=== PATIENT | female | born 1950 | race Caucasian/White ===

== ENCOUNTER 2017-07-25 09:21 | Emergency (ER) | payer MEDICARE, OTHER ==
[~2017-07-25] VITALS: Ht 165.1 cm; Wt 65.8 kg
[~2017-07-25 09:21] MED LIST: BENAZEPRIL; CYMBALTA; SOMA; TRAZODONE
[2017-07-25] MEDS ORDERED: CEPH-569 PO (09:47)
--- NOTE | 2017-07-25 09:56 | NUR ---
Dr Otto at the bedside for MSE.Female news videotape editor accompanied female patient for (Dr otto).
[2017-07-25] MEDS ORDERED: BENA1TAB18 PO (09:57)
[2017-07-25] MEDS ORDERED: CARI350T PO (09:57)
[2017-07-25] MEDS ORDERED: TRAZ-147 PO (09:57)
[2017-07-25] MEDS ORDERED: ONDANSETRON IV *ER 4 MG/2 ML VIAL IV ONE (10:04)
[2017-07-25] MEDS ORDERED: PIPERACILLIN/TAZOBACTAM/D5W 3.375 G in PREMIXED 1 EACH IV ONE (10:05)
[2017-07-25] MEDS ORDERED: ONDANSETRON 4 MG/2 ML VIAL ONE (10:12)
[2017-07-25] MEDS ORDERED: MORPHINE SULFATE 2 MG/1 ML DISP.SYRIN ONE ×2 (10:13→10:56)
[2017-07-25] MEDS ORDERED: MORPHINE SULFATE 2 MG/1 ML DISP.SYRIN IV ONE ×2 (10:15→11:00)
[2017-07-25] MEDS ORDERED: IV NS 1000 ML 1,000 ML IV ONE (10:15)
[2017-07-25] MEDS ORDERED: IOHEXOL 300MG/ML 100 ML INFUS..BTL ONE (10:21)
[2017-07-25] MEDS ORDERED: IV NORMAL SALINE 100 ML ONE (10:21)
[2017-07-25] MEDS ORDERED: SWABABLE VALVE TRANSFER SET EA MC ONE (10:21)
[2017-07-25 10:24] LABS: BASOPHILS # (AUTO) 0.1 K/uL (0.0-8.0); BASOPHILS % (AUTO) 1.2 % (0.0-2.0); EOSINOPHILS # (AUTO) 0.3 K/uL (0.0-0.7); EOSINOPHILS % (AUTO) 3.7 % (0.0-7.0); HEMATOCRIT 35.7 % (31.2-41.9); HEMOGLOBIN 12.3 g/dL (10.9-14.3); LYMPHOCYTES # (AUTO) 1.4 K/uL (20.0-40.0); LYMPHOCYTES % (AUTO) 19.9 % (20.5-51.5); MEAN CORPUSCULAR HEMOGLOBIN 30.6 uug (24.7-32.8); MEAN CORPUSCULAR HGB CONC 34 g/dL (32.3-35.6); MEAN CORPUSCULAR VOLUME 89.2 fL (75.5-95.3); MONOCYTES # (AUTO) 0.5 K/uL (2.0-10.0); MONOCYTES % (AUTO) 6.7 % (0.0-11.0); NEUTROPHILS # (AUTO) 4.9 K/uL (1.8-8.9); NEUTROPHILS % (AUTO) 68.5 % (38.5-71.5); PLATELET COUNT (AUTO) 420 K/uL (179-408); WHITE BLOOD COUNT (AUTO) 7.2 K/uL (3.8-11.8)
[2017-07-25 10:33] LABS: CREATININE 1.3 mg/dL (0.6-1.3)
[2017-07-25] MEDS ORDERED: PIPERACILLIN/TAZOBACTAM/D5W 50 ML IV ONE (10:36)
[2017-07-25 10:39] LABS: BILIRUBIN,TOTAL 0.3 mg/dL (0.2-1.0); TOTAL PROTEIN, SERUM 7.2 g/dL (6.4-8.2)
--- NOTE | 2017-07-25 10:50 | NUR ---
Pt signed consent for IV contrast, placed in the chart.
--- NOTE | 2017-07-25 11:07 | NUR ---
Pt out of ER for CT.
[2017-07-25 12:18] LABS: *BILIRUBIN,URIN NEGATIVE (NEGATIVE); *BLOOD, URINE NEGATIVE (NEGATIVE); *CLARITY,URINE CLEAR (CLEAR); *COLOR,URINE YELLOW (YELLOW); *KETONES,URINE NEGATIVE (NEGATIVE); *PROTEIN,URINE NEGATIVE (NEGATIVE); *UROBILINOGEN,URINE 0.2 E.U./dl (NORMAL); LEUKOCYTE ESTERASE ,URINE NEGATIVE (NEGATIVE); NITRITE, URINE NEGATIVE (NEGATIVE); UGLUCOSE NEGATIVE (NEGATIVE)
[2017-07-25 12:29] LABS: BACTERIA,URINE FEW /HPF (NONE SEEN); RBC,URINE 0-3 /HPF (0-3); SQUAMOUS EPITHELIAL CELL,UR FEW /HPF (NONE SEEN); WBC,URINE 0-3 /HPF (0-3)
[2017-07-25 12:54] VITALS: BP 115/67
--- NOTE | 2017-07-25 12:54 | NUR ---
IV removed. Catheter intact and site benign. Pressure and 4x4 gauze applied to site. No bleeding noted.
--- NOTE | 2017-07-25 12:55 | NUR ---
Patient discharged to home in stable conditon. Written and verbal after care instructions given. Patient verbalizes understanding of instructions. Pt walked out ER w/ steady gait.
== END 2017-07-25 12:55 | disposition home or self-care (01) ==
LOC: ER 09:21
DX: Z01.818 Encounter for other preprocedural examination (principal); L03.317 Cellulitis of buttock; I10 Essential (primary) hypertension; M43.16 Spondylolisthesis, lumbar region; M51.37 Other intervertebral disc degeneration, lumbosacral region; M79.7 Fibromyalgia; Z88.0 Allergy status to penicillin; Z88.1 Allergy status to other antibiotic agents
CPT/HCPCS: 36415; 71045; 74177; 80053; 81001; 82550; 85025; 85610; 87040 ×2; 93005; 96365; 96366; 96375; 96376; 99285; A4663; J2270 ×2; J2405; J2543; J3490; J7030; Q9967